=== PATIENT | female | born 1935 | race Caucasian/White ===

== ENCOUNTER → 2025-04-17 05:00 | Outpatient (REF) | payer MEDICARE, SELFPAY ==
[2025-04-17 08:03] LABS: Anion Gap 12 (5-15); BUN 8 mg/dL (4-19); BUN/Creat Ratio 9.7 RATIO (10-20); Calcium,Total 8.8 mg/dL (7.6-11.0); Carbon Dioxide 21.9 mmol/L (21.0-32.0); Chloride 107 mmol/L (98-108); Glucose 92 mg/dL (70-99); Potassium 3.4 mmol/L (3.3-5.1)
== END ==
LOC: OLS.ACW400 05:00
PROVIDERS: Visit Provider Family Medicine
DX: E55.9 Vitamin D deficiency, unspecified (principal); G30.0 Alzheimer's disease with early onset; C44.01 Basal cell carcinoma of skin of lip
CPT/HCPCS: 36415; 80048